=== PATIENT | female | born 2000 | race Two or more races ===

== ENCOUNTER 2018-12-23 15:04 | Inpatient (IN) | payer OTHER ==
[~2018-12-23] VITALS: Ht 152.4 cm; Wt 80.7 kg
== END 2019-01-11 14:59 | disposition home or self-care (01) | DRG 807 ==
LOC: OB/GYN 01-09 06:43 → LDR 01-09 06:43 → OB/GYN 01-09 14:21 → LDR 01-14 15:01
PROVIDERS: ADMIT Specialist
PROC: 10E0XZZ Delivery of Products of Conception, External Approach (ICD-10-PCS; principal; 2019-01-09)
PROC: 4A1HXCZ Monitoring of Products of Conception, Cardiac Rate, External Approach (ICD-10-PCS; 2019-01-09)
PROC: 3E033VJ Introduction of Other Hormone into Peripheral Vein, Percutaneous Approach (ICD-10-PCS; 2019-01-09)
PROC: 4A033R1 Measurement of Arterial Saturation, Peripheral, Percutaneous Approach (ICD-10-PCS; 2019-01-09)
DX: O66.0 Obstructed labor due to shoulder dystocia (principal); Z37.0 Single live birth; Z3A.39 39 weeks gestation of pregnancy